=== PATIENT | male | born 1995 | race Caucasian/White ===

== ENCOUNTER 2019-07-22 07:56 | Outpatient (CLI) | payer BC, SELFPAY ==
--- NOTE | 2019-07-28 09:26 | SLEEP_ITS ---
DATE OF STUDY: 07/22/2019 STUDY: Home sleep study. ORDERING PHYSICIAN: Yosef Mcguire M.D. REASON FOR THE STUDY: Insomnia with suspected sleep apnea. HISTORY: This patient is 24 years old male, 6 feet tall, weighing 215 pounds with the body mass index of 29.1. He complains of memory problems, snoring at night, and falling asleep easily during the day. He has ADHD. He is seeking management options currently. He does frequently snore and occasionally it is loud enough that others complain about it. He does not awaken from sleep short of breath or having heartburn or belching. He does not have trouble sleeping with the cold, does not gasp for breath at night, and does not have breathing problems at night witnessed by others. He frequently sweats excessively at night. He does not notices heart pounding or beating irregularly at night. He rarely falls asleep during the day, but occasionally this does happen involuntarily. This never happens while driving. He does not have loss of muscle tone with strong emotion. He rarely has daytime difficulties due to excessive sleepiness. He is a real estate financial analyst. He does not feel paralyzed on waking or falling asleep. He does not have vivid dreamlike scenes upon awakening or falling asleep. He is never afraid to go to sleep. He does not have nightmares. He rarely remembers his dreams. He frequently has racing thoughts. He rarely feels sad or depressed. He frequently has anxiety. He occasionally has muscular tension. He frequently notices parts of his body jerking, and he frequently kicks at night. He does not have crawly achy feelings in the legs or leg pain at night. He denies morning jaw pain. He constantly grinds his teeth at night. He is not bothered by pain during the day or is awakened with pain at night. He does not wake up feeling stiff in the morning. He occasionally wakes up with sore achy muscles. He does not wake up with pain in the neck or spine. He has headaches, memory problems, and concentration difficulties, takes antacids and [id number] pain relievers, such as Advil and Tylenol regularly. Normal bedtime is 10:30 to 11 p.m., falling asleep immediately or sometimes up to 30 minutes to fall asleep. He does not awaken for long at night. If he does awaken, he is awake for 3 minutes, during which time, he will go to the bathroom and have a drink of water. He wakes up at 6:30 in the morning. On the weekends, his schedule shows he goes to sleep at midnight or 1 a.m., and wakes at 8 a.m. He does not take naps. A short nap is not refreshing. Most of the time, he feels good in the morning. MEDICAL COMORBIDITIES: Sinusitis, frequent epistaxis, heartburn, and seasonal allergies. MEDICATIONS: No prescribed medications regularly. He does use [id number] antacids, Advil, and Tylenol. HABITS: No tobacco. Caffeine, 3 cups of coffee a day. One to three alcoholic beverages a week. DESCRIPTION OF THE STUDY: On the Dawes Sleepiness Scale, the score was 9. This was conducted as an unattended portable home sleep test using 4-channel monitoring, including respiratory effort channel, snoring channel, oxygen saturation channel, and heart rate channel. This study was scored using the CMS guidelines. Duration of the study was 7 hours 5 minutes. The apnea-hypopnea index was 5. The oxygen desaturation index is 3.5. The patient had 10 apneas. 70% of the apneas or 7 were central, 30% or 3 were obstructive, and there were 22 hypopneas. The patient had 25 desaturations of 4% or greater with no time spent below 88%. The minimum saturation was 88%. Average saturation was 95%. Pulse ranged from 42 to 97. IMPRESSION: 1. This study provides an evidence of mild obstructive sleep apnea syndrome, G47.33, with an AHI of 5,
== END 2019-07-22 07:57 | disposition home or self-care (01) ==
LOC: ANHCSM 07:58
PROVIDERS: Visit Provider Family Medicine
DX: G47.00 Insomnia, unspecified (principal); G47.33 Obstructive sleep apnea (adult) (pediatric); F90.9 Attention-deficit hyperactivity disorder, unspecified type; J30.2 Other seasonal allergic rhinitis
CPT/HCPCS: 95806

== ENCOUNTER 2019-08-21 08:04 | Outpatient (CLI) | payer BC, SELFPAY ==
--- NOTE | 2019-08-29 12:26 | SLEEP_ITS ---
Nocturnal Polysomnogram. DATE OF STUDY: 08/21/2019 REASON FOR THE STUDY: Insomnia with suspected obstructive sleep apnea. HISTORY: This patient is a 24-year-old male, 70 inches tall, weighing 219 pounds with a body mass index of 31.4. On 07/22/2019, he had a home sleep test for complaints of memory problems, snoring at night, and falling asleep easily during the day. He has ADHD. He frequently snores and occasionally it is loud enough that others complain about it. He does not awaken from sleep feeling short of breath or having heartburn or belching. He does not have witnessed apneas reported by others. He frequently sweats excessively at night, but does not notice his heart pounding or beating irregularly at night. He rarely falls asleep during the day, but occasionally it happens involuntarily. This never happens while driving. He does not have loss of muscle tone with strong emotion. He rarely has daytime difficulties due to excessive sleepiness. He is a financial reporting manager. He does not feel paralyzed on waking or falling asleep and does not have vivid dreamlike scenes upon awakening or falling asleep. He is never afraid to go to sleep. He does not have nightmares and rarely remembers his dreams. On a prior study, his apnea-hypopnea index was 5 with mild desaturation to 88% and mild snoring. His home sleep test appeared to underestimate the severity of the sleep-disordered breathing, so he returns for definitive study. MEDICAL COMORBIDITIES: Sinusitis, frequent epistaxis, heartburn, and seasonal allergies. MEDICATIONS: No regularly prescribed medications. He takes [id number] Advil and Tylenol. HABITS: No tobacco. Caffeine, 3 cups of coffee a day. 1-3 alcoholic beverages per week. DESCRIPTION OF THE STUDY: On the Cambridge Sleepiness Scale, his score was 9. This was conducted as a full night nocturnal polysomnogram using the [employer] multiple channel system including EOG, EEG, submental EMG, EKG, nasal and oral airflow using thermistors and nasal pressure sensors, chest and abdominal belts, body position data and pulse oximetry. The study was scored using CMS guidelines. Duration of the study was 419.7 minutes. Sleep time was 389.3 minutes. Sleep efficiency was normal at 92.8%. Sleep latency was normal at 8.3 minutes. REM latency was prolonged at 178.5 minutes. He had 22 awakenings and spent 5.3% of the study or 22 minutes awake after sleep onset. Sleep architecture showed 6.2% stage 1 sleep, 59.8% stage 2 sleep, 11.5% stage 3 sleep, and 17.1% stage REM. He spent 94.6% of this study supine. Sleep architecture showed 3 REM cycles. He had delay in the first REM cycle. Sleep was somewhat fragmented. The apnea-hypopnea index was 0.8. The obstructive index was 0.2, central index 0.3. He had 1 obstructive hypopnea in supine REM. No events in non-supine REM, 4 central apneas in supine non-REM, and no events in non-supine non-REM. The supine index was 0.8. Nonsupine index was 0. Lowest desaturation was 94%. He spent no time below 88%. He had 1 desaturation of 4% or greater for an index of 0.1. Mean saturation was 96%. AROUSALS: 64 arousals for an index of 9.2. He had 1 snore for an index of 0.1 and 63 spontaneous arousals for an index of 9.0. EKG: Sinus rhythm, sinus bradycardia, mean heart rate 58. EEG is unremarkable. The patient did not meet criteria for CPAP titration. He had frequent light snoring and slept supine through the majority of the night. He did not have any limb movements. IMPRESSION: 1. This attended nocturnal polysomnogram does not show evidence of sleep-disordered breathing. His apnea-hypopnea index was 0.8. He had relatively normal sleep architecture and light snoring. No significant sleep-disor
== END 2019-08-21 08:05 | disposition home or self-care (01) ==
LOC: ANHCSM 08:05
PROVIDERS: Visit Provider Family Medicine
DX: G47.33 Obstructive sleep apnea (adult) (pediatric) (principal); F90.9 Attention-deficit hyperactivity disorder, unspecified type
CPT/HCPCS: 95810